=== PATIENT | female | born 1985 ===

== ENCOUNTER 2024-09-20 06:58 | Day surgery (SDC) | payer OTHER ==
[2024-08-29 09:03] LABS: BASO % 0.3 % (0.1-1.2); EOS # 0.11 (0.04-0.54); EOS % 1.5 % (0.7-7.0); HEMATOCRIT 30.9 % (34.1-44.9); HEMOGLOBIN 9.7 g/dL (11.2-15.7); LYMPH # 0.82 (1.18-3.74); LYMPH % 11.1 % (19.3-53.1); MEAN CORPUSCULAR HEMOGLOBIN 28.7 pg (25.6-32.2); MONO # 0.49 (0.24-0.82); MONO % 6.6 % (4.7-12.5); NEUT # 5.91 (1.56-6.13); NEUT % 80.2 % (34.0-71.1); PLATELET COUNT 353 K/uL (163-369); RED BLOOD COUNT 3.38 M/uL (3.93-5.22); RED CELL DISTRIBUTION WIDTH 15.4 % (11.6-14.4)
[2024-08-29 09:08] LABS: PH,URINE 7.5 (5.0-8.0); URINE APPEARANCE Clear; URINE BILIRRUBIN Negative (NEGATIVE); URINE BLOOD Large; URINE COLOR Yellow; URINE GLUCOSE Negative (NEGATIVE); URINE KETONE Negative (NEGATIVE); URINE LEUKOCYTE Negative; URINE NITRATE Negative; URINE PROTEIN Negative (NEGATIVE); URINE UROBILINOGEN 0.2 E.U./dl
[2024-08-29 09:10] LABS: URINE BACTERIA 26.9 uL (0.0-1933); URINE EPITHELIAL CELLS 10.7 uL (0.0-38.8); URINE RBC 964.4 uL (0.0-20.8); URINE WBC 3.6 uL (0.0-23.2)
[2024-08-29 09:35] LABS: INR 0.95; PARTIAL THROMBOPLASTIN TIME 25.5 SECONDS (22.0-34.0); PROTHROMBIN TIME 10.4 SECONDS (9.0-11.5)
[2024-08-29 09:47] VITALS: BP 111/70
[2024-08-29 10:22] LABS: ALBUMIN 3.6 gm/dL (3.4-5.0); BILIRUBIN TOTAL 0.13 mg/dL (0.3-1.2); CALCIUM 8.8 mg/dL (8.5-10.1); CREATININE SERUM 0.59 mg/dL (0.55-1.02); GFR 112.89; POTASSIUM 4.17 mEq/L (3.5-5.1); TOTAL PROTEIN 6.6 gm/dL (6.4-8.2)
[2024-09-06 12:56] LABS: RH POSITIVE
[~2024-09-20] VITALS: Ht 162.6 cm; Wt 60.3 kg
[~2024-09-20 06:58] MED LIST: CEFADROXIL500 MG PO; METFORMIN HCL1000 MG PO; NOVOLOG100 U/ML SQ; OXYBUTYNIN CHLO10 MG PO; TENORMIN50 M1 PO
[2024-09-20] MEDS ORDERED: CEFAZOLIN SODIUM 1,000 MG VIAL ONE (13:20)
[2024-09-20] MEDS ORDERED: POVIDONE-IODINE 118 ML BOTT TOP ONE (16:07)
[2024-09-20] MEDS ORDERED: KETOROLAC TROMETHAMINE 30 MG VIAL IV ONE (18:00)
[2024-09-20] MEDS ORDERED: FAMOTIDINE/PF 20 MG/2 ML VIAL IV ONE (18:00)
[2024-09-20] MEDS ORDERED: ONDANSETRON HCL 2 MG/ML VIAL IV PRN (18:00)
[2024-09-20] MEDS ORDERED: FAMOTIDINE/PF 20 MG/2 ML VIAL ONE (18:34)
[2024-09-20] MEDS ORDERED: KETOROLAC TROMETHAMINE 30 MG VIAL ONE (18:34)
[2024-09-20] MEDS ORDERED: MORPHINE SULFATE 4 MG/ML VIAL IV ONE (20:15)
[2024-09-20 21:40] LABS: BASO % 0.2 % (0.1-1.2); EOS # 0.13 (0.04-0.54); EOS % 1.6 % (0.7-7.0); HEMATOCRIT 36.7 % (34.1-44.9); HEMOGLOBIN 11.7 g/dL (11.2-15.7); LYMPH # 1.66 (1.18-3.74); LYMPH % 19.8 % (19.3-53.1); MEAN CORPUSCULAR HEMOGLOBIN 28.7 pg (25.6-32.2); MONO # 0.73 (0.24-0.82); MONO % 8.7 % (4.7-12.5); NEUT # 5.81 (1.56-6.13); NEUT % 69.5 % (34.0-71.1); PLATELET COUNT 309 K/uL (163-369); RED BLOOD COUNT 4.07 M/uL (3.93-5.22); RED CELL DISTRIBUTION WIDTH 14.6 % (11.6-14.4)
[2024-09-20 22:05] LABS: PHOSPHOKINASE CREATININE 44 U/L (26-192)
[2024-09-20 22:10] LABS: CKMB < 1.0 NG/ML (0.5-3.6)
== END 2024-09-20 22:30 | disposition home or self-care (01) ==
LOC: CIR.AMB 06:58
PROVIDERS: Internal Medicine; ATTEND General Practice
DX: D25.0 Submucous leiomyoma of uterus (principal); N93.8 Other specified abnormal uterine and vaginal bleeding; Z88.2 Allergy status to sulfonamides

== ENCOUNTER 2024-09-20 08:08 | Outpatient (CLI) | payer OTHER | END 2024-09-20 12:50 | disposition home or self-care (01) | LOC: LAB 08:08 | PROVIDERS: ATTEND Anesthesiology | DX: R89.0 Abnormal level of enzymes in specimens from other organs, systems and tissues (principal); O02.81 Inappropriate change in quantitative human chorionic gonadotropin (hCG) in early pregnancy ==

== ENCOUNTER → 2024-12-20 | Day surgery (SDC) | payer OTHER ==
[2024-12-12 10:03] VITALS: BP 110/74
[2024-12-12 10:41] LABS: URINE APPEARANCE Clear; URINE BILIRRUBIN Negative (NEGATIVE); URINE BLOOD Small; URINE COLOR Yellow; URINE GLUCOSE Negative (NEGATIVE); URINE KETONE Trace (NEGATIVE); URINE LEUKOCYTE Negative; URINE NITRATE Negative; URINE PROTEIN Trace (NEGATIVE); URINE UROBILINOGEN 0.2 E.U./dl
[2024-12-12 10:45] LABS: URINE BACTERIA 49.1 uL (0.0-1933); URINE EPITHELIAL CELLS 14.7 uL (0.0-38.8); URINE RBC 24.1 uL (0.0-20.8); URINE WBC 5.2 uL (0.0-23.2)
[2024-12-12 10:57] LABS: URINE CAST 0.43 uL (0.0-1.40)
[2024-12-12 11:36] LABS: BASO % 0.6 % (0.1-1.2); EOS # 0.17 (0.04-0.54); EOS % 2.0 % (0.7-7.0); LYMPH # 1.05 (1.18-3.74); LYMPH % 12.4 % (19.3-53.1); MEAN PLATELET VOLUME 10.10 fl (9.4-12.4); MONO # 0.56 (0.24-0.82); MONO % 6.6 % (4.7-12.5); NEUT # 6.59 (1.56-6.13); NEUT % 78.2 % (34.0-71.1); RED CELL DISTRIBUTION WIDTH 15.9 % (11.6-14.4)
[2024-12-12 11:55] LABS: INR 0.99
[2024-12-12 12:01] LABS: RH POSITIVE
[2024-12-12 12:04] LABS: ALT/SGPT 18.0 U/L (12-78); AST/SGOT 6.0 U/L (15-37); BILIRUBIN TOTAL 0.22 mg/dL (0.3-1.2); BUN CREA RATIO 12.0 (7.0-25.0); CREATININE SERUM 0.6 mg/dL (0.55-1.02); GFR 110.72; GLOBULINA 3.6 G/DL (2.4-3.5); GLUCOSE FASTING 102.0 mg/dL (65-100); OSMOLALITY SERUM 283.0 MOSM/KG (275-295)
[~2024-12-20] VITALS: Ht 162.6 cm; Wt 61.2 kg
[~2024-12-20] MED LIST changes: +CEFAZOLIN SODIUM 1,000 MG VIAL ONE; +MORPHINE SULFATE 4 MG/ML VIAL IV ONE; +POVIDONE-IODINE 118 ML BOTT TOP ONE; +RINGERS SOLUTION,LACTATED 1,000 ML IV SCH; +TRANEXAMIC ACID 100MG/1ML (1000MG) AMPUL ONE; +VASOPRESSIN 20 UNITS/ML VIAL IV ONE; +VASOPRESSIN 20 UNITS/ML VIAL ONE
== END | disposition home or self-care (01) ==
LOC: ADM 12-12 08:45 → CIR.AMB 07:00
PROVIDERS: ATTEND Student in an Organized Health Care Education/Training Program
DX: D25.0 Submucous leiomyoma of uterus (principal); N93.8 Other specified abnormal uterine and vaginal bleeding; Z88.2 Allergy status to sulfonamides; Z88.5 Allergy status to narcotic agent